=== PATIENT | male | born 1950 | race Caucasian/White ===

== ENCOUNTER 2018-09-24 07:39 | Day surgery (SDC) | payer MEDICARE ==
[2018-09-24 08:09] VITALS: BP 184/90
[2018-09-24] MEDS ORDERED: ISOS30TA9 PO (08:23)
[2018-09-24] MEDS ORDERED: CHOL10002 PO (08:23)
[2018-09-24] MEDS ORDERED: FURO-150 PO (08:23)
[2018-09-24] MEDS ORDERED: UBIQ100C3 PO (08:23)
[2018-09-24] MEDS ORDERED: CLON-529 PO (08:23)
[2018-09-24] MEDS ORDERED: TERA1CAP4 PO (08:23)
[2018-09-24] MEDS ORDERED: VIT1CAPS48 PO (08:23)
[2018-09-24] MEDS ORDERED: IRBE150T51 PO (08:23)
[2018-09-24] MEDS ORDERED: VITC500T PO (08:23)
[2018-09-24] MEDS ORDERED: MAGN400C PO (08:23)
[2018-09-24 08:55] VITALS: BP 157/97
[2018-09-24 09:05] VITALS: BP 158/82
[2018-09-24 09:20] VITALS: BP 150/87
[2018-09-24 09:35] VITALS: BP 186/82
[2018-09-24 09:50] VITALS: BP 192/81
--- NOTE | 2018-09-24 09:51 | NUR ---
pt vs charted. BP 192/81, pt states he is taking Clonidine every three hours, next dose due at 1000. He will take medications as prescribed.
[2018-09-24 12:00] LABS: BFAPPEAR HAZY
[2018-09-24 12:01] LABS: BASOPHILS,BODY FLUID 1 %; BF RBC COUNT 1225 /CU MM; BF WBC COUNT 1165 /CU MM (0-1000); BFCOLOR YELLOW; BFVOLUME 48 ML; EOSINOPHILS,BODY FLUID 1 %; LYMPHOCYTES,BODY FLUID 20 %; MONOCYTES,BODY FLUID 6 %; NEUTROPHILS,BODY FLUID 72 %
[2018-09-24 12:02] LABS: BF MESOTHELIAL CELLS FEW; OTHER CELLS,BODY FLUID MACROPHAGES
== END 2018-09-24 09:50 | disposition home or self-care (01) ==
LOC: SSTAY O 07:39
PROVIDERS: ATTEND Radiology Vascular & Interventional Radiology
DX: J90 Pleural effusion, not elsewhere classified (principal); I42.0 Dilated cardiomyopathy; M19.90 Unspecified osteoarthritis, unspecified site; I10 Essential (primary) hypertension; Z96.651 Presence of right artificial knee joint; Z98.890 Other specified postprocedural states; Z79.899 Other long term (current) drug therapy; Z85.828 Personal history of other malignant neoplasm of skin
CPT/HCPCS: 32555; 71045; 87070; 89051; C1729; 88108; 88305

== ENCOUNTER 2020-07-29 14:13 | Emergency (ER) | payer MEDICARE ==
[~2020-07-29] VITALS: Ht 172.7 cm; Wt 88.6 kg
[~2020-07-29 14:13] MED LIST: CHOL10002 PO; CLON-529 PO; FURO-150 PO; IRBE150T51 PO; ISOS30TA9 PO; MAGN400C PO; TERA1CAP4 PO; UBIQ100C3 PO; VIT1CAPS48 PO; VITC500T PO
[2020-07-29] MEDS ORDERED: acetaminophen 325mg tablet PO ONE (16:35)
[2020-07-29 17:13] VITALS: BP 173/87
== END 2020-07-29 17:14 | disposition home or self-care (01) ==
LOC: ER 14:14
DX: M25.561 Pain in right knee (principal); Z79.899 Other long term (current) drug therapy
CPT/HCPCS: 29505; 73564; 99284

== ENCOUNTER 2020-08-11 13:39 | Day surgery (SDC) | payer MEDICARE ==
[~2020-08-11] VITALS: Ht 172.7 cm; Wt 88.5 kg
[~2020-08-11 13:39] MED LIST changes: +CARV6.253 PO; -CHOL10002 PO; -CLON-529 PO; +DOCUMENT DATE & TIME OF BETA-BLOCKER PO ONE; +DOXA4TAB5 PO; -FURO-150 PO; +FURO40TA4 PO; -IRBE150T51 PO; -ISOS30TA9 PO; -MAGN400C PO; -TERA1CAP4 PO; -UBIQ100C3 PO; -VIT1CAPS48 PO; -VITC500T PO; +cefazolin/dext.iso 2gm/100ml 100 ML IV ONE; +famotidine 20mg tablet PO ONE; +ringers solution, lacted 1,000 ML IV SCH; +vancomycin 1,500 MG in NS 300ml IV soln IV ONE
[2020-08-11 14:10] VITALS: BP 182/79
[2020-08-11] MEDS ORDERED: ROPIVAcaine 0.5% (5mg/ml) 30ml vial ONE (14:57)
[2020-08-11 15:12] LABS: BASOPHILS % (AUTO) 0.8 % (0-1); EOSINOPHILS # (AUTO) 0.3 X10'3 (0-0.9); HEMATOCRIT 34.4 % (42.0-52.0); LYMPHOCYTES # (AUTO) 1.4 X10'3 (1.1-4.8); LYMPHOCYTES % (AUTO) 25.6 % (21-51); MEAN CORPUSCULAR HEMOGLOBIN 32.5 PG (27.0-31.0); MEAN CORPUSCULAR HGB CONC 34.9 g/dL (33.0-36.5); MEAN CORPUSCULAR VOLUME 93.1 FL (78-98); MEAN PLATELET VOLUME 6.7 FL (7.4-10.4); MONOCYTES # (AUTO) 0.5 X10'3 (0-0.9); MONOCYTES % (AUTO) 8.9 % (2-12); NEUTROPHILS # (AUTO) 3.2 X10'3 (1.8-7.7); NEUTROPHILS % (AUTO) 59.7 % (42-75); PLATELET COUNT 253 X10'3 (140-440); RED BLOOD COUNT 3.69 X10'6 (4.70-6.10); RED CELL DISTRIBUTION WIDTH 12.7 % (11.5-14.5); WHITE BLOOD COUNT 5.4 X10'3 (4.5-11.0)
[2020-08-11] MEDS ORDERED: sevoflurane 250ml liquid IH ONE (15:24)
[2020-08-11] MEDS ORDERED: glycopyrrolate 0.2mg/ml inj ONE (15:24)
[2020-08-11] MEDS ORDERED: fentaNYL/PF 50MCG/1 ML 2ML syringe ONE (15:26)
[2020-08-11] MEDS ORDERED: propofol inj 20 ML IV ONE (15:27)
[2020-08-11] MEDS ORDERED: midazolam 1 mg/ML 2ml injection ONE (15:27)
[2020-08-11] MEDS ORDERED: meperidine/PF 25mg/ml syringe IV PRN ×3 (16:15)
[2020-08-11] MEDS ORDERED: proCHLORperazine 10 MG/2 ml inj IV PRN (16:15)
[2020-08-11] MEDS ORDERED: ringers solution, lacted 1,000 ML IV SCH (16:15)
[2020-08-11] MEDS ORDERED: morphine 2 MG/ML inj. syringe IV PRN (16:15)
[2020-08-11] MEDS ORDERED: ondansetron/PF 4mg/2ml inj IV PRN (16:15)
[2020-08-11 16:31] VITALS: BP 172/93
--- NOTE | 2020-08-11 16:31 | NUR ---
Received from OR via [facility] , accompanied by Anesthesiologist CHRIS and report given by Anesthesiolgist. PATIENT WITH 20G PIV IN LEFT UE RUNNING LR AT 10. VSS. DENIES PAIN RIGHT LE IN ANJU BANDAGE THAT IS CDI AND IMMOBILIZER. + DP TO RIGHT LE. Addendum: 08/11/20 at 1639 by Martinez Villalpando RN, RN Amended: Links added.
[2020-08-11 16:40] VITALS: BP 152/85
[2020-08-11] MEDS: morphine 4 MG/ML inj SYRINge IV PRN ×2 (16:42→17:04)
[2020-08-11 16:50] VITALS: BP 178/92
[2020-08-11 17:00] VITALS: BP 180/88
[2020-08-11 17:10] VITALS: BP 173/91
[2020-08-11] MEDS ORDERED: HYDROcodone/acetaminophen 10/325mg tab PO ONE (17:10)
--- NOTE | 2020-08-11 17:21 | NUR ---
ALL CRITERIA FOR DC HOME HAS BEEN MET. IV OUT, SMALL SKIN TEAR UPON REMOVAL OF IV. PATIENT AWARE AND STATES "ITS OKAY I HAVE THIN SKIN AND IT HAPPENS ALL THE TIME" STATES HE WILL BE FINE. DRESSED AND TAKEN DOWN VIA WHEELCHAIR TO PERSONAL VEHICLE WHERE FAMILY DROVE HIM HOME. DRESSING IS STILL CDI. Addendum: 08/11/20 at 1745 by Martinez Villalpando RN, RN Amended: Links added.
== END 2020-08-11 17:21 | disposition home or self-care (01) ==
LOC: PAS 13:39
PROVIDERS: ATTEND Orthopaedic Surgery
DX: S76.111A Strain of right quadriceps muscle, fascia and tendon, initial encounter (principal); G89.18 Other acute postprocedural pain; G47.30 Sleep apnea, unspecified; I12.9 Hypertensive chronic kidney disease with stage 1 through stage 4 chronic kidney disease, or unspecified chronic kidney disease; N18.30 Chronic kidney disease, stage 3 unspecified; Z98.890 Other specified postprocedural states; Z87.891 Personal history of nicotine dependence; Z72.89 Other problems related to lifestyle; W19.XXXA Unspecified fall, initial encounter; Y93.89 Activity, other specified; Y92.89 Other specified places as the place of occurrence of the external cause; Y99.8 Other external cause status
CPT/HCPCS: 27385; 36415; 64447; 76942; 85025; 93005; A6222; J2250; J2270; J2704; J3010; J3370; J7120; A4618; A6449; A7000; J2795; J3490; J7040